=== PATIENT | male | born 1945 | race Caucasian/White ===

== ENCOUNTER → 2016-09-03 | Outpatient (CLI) | payer MEDICARE, OTHER | END | disposition home or self-care (01) | LOC: PCVCIMAG 14:36 | PROVIDERS: ATTEND Internal Medicine Cardiovascular Disease | DX: I70.213 Atherosclerosis of native arteries of extremities with intermittent claudication, bilateral legs (principal); I25.10 Atherosclerotic heart disease of native coronary artery without angina pectoris | CPT/HCPCS: 93925 ==

== ENCOUNTER → 2016-09-09 | Outpatient (CLI) | payer MEDICARE, OTHER | END | disposition home or self-care (01) | LOC: PCVCCLINIC 15:50 | PROVIDERS: ATTEND Nuclear Medicine Nuclear Cardiology | DX: I73.9 Peripheral vascular disease, unspecified (principal); I35.0 Nonrheumatic aortic (valve) stenosis; I65.29 Occlusion and stenosis of unspecified carotid artery; E78.00 Pure hypercholesterolemia, unspecified; G47.30 Sleep apnea, unspecified | CPT/HCPCS: G0463 ==

== ENCOUNTER → 2016-09-13 | Outpatient (CLI) | payer MEDICARE, OTHER ==
[~2016-09-13] MED LIST: CEFAZOLIN 2GM PREMIX 0 ML IV ONE; CLOPIDOGREL BISULFATE 75 MG TABLET ONE; DIAZEPAM 10 MG TABLET ONE; FENTANYL PF 100 MCG/2 ML VIAL. ONE; HEPARIN 5,000 UNIT/ML VIAL for PCVC ONE; IODIXANOL 270 MG/ML 100 ML VIAL. ONE; IV NORMAL SALINE 1000ML BAG 1,000 ML ONE; IV NORMAL SALINE 500ML BAG 0 ML ONE; LIDOCAINE 1% Multi-Dose 20 ML VIAL. ONE; MIDAZOLAM HCL 2 MG/2 ML VIAL. ONE; hydrALAZINE 20 MG/ML VIAL. ONE
== END | disposition home or self-care (01) ==
LOC: PCVCINTER 09:28
PROVIDERS: ATTEND Nuclear Medicine Nuclear Cardiology
DX: I70.213 Atherosclerosis of native arteries of extremities with intermittent claudication, bilateral legs (principal); I70.1 Atherosclerosis of renal artery; I70.0 Atherosclerosis of aorta; I15.0 Renovascular hypertension; I77.1 Stricture of artery; I35.0 Nonrheumatic aortic (valve) stenosis; I65.29 Occlusion and stenosis of unspecified carotid artery; E78.00 Pure hypercholesterolemia, unspecified; G47.30 Sleep apnea, unspecified
CPT/HCPCS: 36246; 36252; 75716; 76937; C1751; C1760; C1769; C1894; J0360; J2250; J3010; J7030; J0690; J1644; J7040

== ENCOUNTER → 2016-10-09 | Outpatient (CLI) | payer MEDICARE, OTHER ==
[~2016-10-09] MED LIST changes: -CEFAZOLIN 2GM PREMIX 0 ML IV ONE; -CLOPIDOGREL BISULFATE 75 MG TABLET ONE; -DIAZEPAM 10 MG TABLET ONE; -FENTANYL PF 100 MCG/2 ML VIAL. ONE; -HEPARIN 5,000 UNIT/ML VIAL for PCVC ONE; -IODIXANOL 270 MG/ML 100 ML VIAL. ONE; -IV NORMAL SALINE 1000ML BAG 1,000 ML ONE; -IV NORMAL SALINE 500ML BAG 0 ML ONE; -LIDOCAINE 1% Multi-Dose 20 ML VIAL. ONE; -MIDAZOLAM HCL 2 MG/2 ML VIAL. ONE; +REGADENOSON 0.4 MG/5 ML DISP.SYRIN. IV ONE; -hydrALAZINE 20 MG/ML VIAL. ONE
== END | disposition home or self-care (01) ==
LOC: PCVCIMAG 07:50
PROVIDERS: ATTEND Internal Medicine Cardiovascular Disease
DX: I25.10 Atherosclerotic heart disease of native coronary artery without angina pectoris (principal); I73.9 Peripheral vascular disease, unspecified; I63.9 Cerebral infarction, unspecified; Z82.49 Family history of ischemic heart disease and other diseases of the circulatory system
CPT/HCPCS: 78452; 93017; A9500; G0463; J2785

== ENCOUNTER → 2017-04-11 | Outpatient (CLI) | payer MEDICARE, OTHER ==
--- NOTE | 2017-04-11 15:46 | PCVCIMAG ---
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 2D Dimensions LVEF(%): 52.17 (>50%) IVSd: 9.03 (7-11mm)LVOT Diam: 20.60 (18-24mm) LVDd: 48.44 mm PWd: 9.58 (7-11mm) LVDs: 35.47 (25-40mm) Left Atrium: 31.99 (27-40mm) Aortic Root: 25.60 mm LV Single Plane 4CH: 49.09 % LV Single Plane 2CH: 66.02 %Baeza's LVEF: 57.56 % Biplane EF: 61.0 % Volumes Left Atrial Volume (Systole) Single Plane 4CH: 47.16 mLSingle Plane 2CH: 59.83 mL Biplane LA Volume: 56.00 mLLA ESV Index: 25.00 mL/m2 Aortic Valve AoV Peak Bassam.: 2.44 m/s AO Peak Gr.: 24.85 mmHgLVOT Max P.70 mmHg AO Mean Gr.: 13.77 mmHgLVOT Mean P.81 mmHg AO V2 Mean: 1.80 m/sLVOT Max V: 0.93 m/s AO V2 VTI: 50.45 cmLVOT Mean V: 0.64 m/s LVOT V1 VTI: 18.80 cm SV (LVOT): 62.67 mL Mitral Valve E/A Ratio: 0.7 MV Decel. Time: 193.54 ms MV E Max Bassam.: 0.52 m/s MV A Bassam.: 0.73 m/s IVRT: 65.74 ms TDI E/Lateral E': 4.73E/Medial E': 13.00 Medial E' Bassam.: 0.04 m/s Lateral E' Bassam.: 0.11 m/s Pulmonary Valve PV Peak Bassam.: 1.09 m/sPV Peak Gr.: 4.72 mmHg Pulmonary Vein P Vein S: 0.62 m/sP Vein A: 0.37 m/s P Vein D: 0.38 m/sP Vein A Dur.: 72.7 msec P Vein S/D Ratio: 1.63 Tricuspid Valve TR Peak Bassam.: 2.46 m/s TR Peak Gr.: 24.28 mmHg TV Vmax: 0.63 m/sPA Pressure: 31.00 mmHg Left Ventricle The left ventricle is normal size. There is normal LV segmental wall motion except for the base-mid inferior wall from an old AL. There is normal left ventricular wall thickness. Left ventricular systolic function is normal. The left ventricular ejection fraction is within the normal range. LVEF is 60-65%. Grade I - abnormal relaxation pattern. Right Ventricle The right ventricle is normal size. The right ventricular systolic function is normal. Atria The left atrium size is normal. Right atrium is mildly dilated. Aortic Valve Aortic valve is trileaflet. Moderate aortic valve sclerosis. Trace aortic regurgitation. Mild aortic stenosis. Highest mean aortic valve gradient is 14mmHg. Peak aortic valve gradient is 24 mmHg. Mitral Valve The mitral valve is normal in structure. Trace to mild mitral regurgitation. No evidence of mitral valve stenosis. Tricuspid Valve The tricuspid valve is normal in structure. Mild tricuspid regurgitation with a PA pressure of 31mmHg. Pulmonic Valve The pulmonary valve is normal in structure. There is no pulmonic valvular regurgitation. Great Vessels The aortic root is normal in size. The ascending aorta is normal in size. IVC is normal in size and collapses with >50% inspiration Pericardium There is no pericardial effusion. There is no pleural effusion. <Conclusion> The left ventricle is normal size. Left ventricular systolic function is normal. The right ventricle is normal size. The left atrium size is normal. Mild aortic stenosis. Trace to mild mitral regurgitation. Mild tricuspid regurgitation with a PA pressure of 31mmHg.
== END | disposition home or self-care (01) ==
LOC: PCVCIMAG 14:48
PROVIDERS: ATTEND Internal Medicine Cardiovascular Disease
DX: I08.3 Combined rheumatic disorders of mitral, aortic and tricuspid valves (principal); I25.10 Atherosclerotic heart disease of native coronary artery without angina pectoris; I10 Essential (primary) hypertension; I73.9 Peripheral vascular disease, unspecified; E78.00 Pure hypercholesterolemia, unspecified; I44.0 Atrioventricular block, first degree; I25.2 Old myocardial infarction; K21.9 Gastro-esophageal reflux disease without esophagitis; G47.33 Obstructive sleep apnea (adult) (pediatric); I65.23 Occlusion and stenosis of bilateral carotid arteries; Z95.1 Presence of aortocoronary bypass graft; Z95.5 Presence of coronary angioplasty implant and graft; Z87.891 Personal history of nicotine dependence; Z79.899 Other long term (current) drug therapy
CPT/HCPCS: 36415; 93005; 93306; G0463

== ENCOUNTER → 2017-10-10 | Outpatient (CLI) | payer MEDICARE, OTHER | END | disposition home or self-care (01) | LOC: PCVCCLINIC 10:52 | DX: I25.10 Atherosclerotic heart disease of native coronary artery without angina pectoris (principal); I10 Essential (primary) hypertension; E78.00 Pure hypercholesterolemia, unspecified; I73.9 Peripheral vascular disease, unspecified; Z79.82 Long term (current) use of aspirin; Z79.899 Other long term (current) drug therapy; Z87.891 Personal history of nicotine dependence | CPT/HCPCS: 93005; G0463 ==

== ENCOUNTER → 2018-02-18 | Outpatient (CLI) | payer MEDICARE, OTHER | END | disposition home or self-care (01) | LOC: PCVCCLINIC 15:41 | DX: I25.10 Atherosclerotic heart disease of native coronary artery without angina pectoris (principal); I10 Essential (primary) hypertension; E78.00 Pure hypercholesterolemia, unspecified; I73.9 Peripheral vascular disease, unspecified; Z79.82 Long term (current) use of aspirin | CPT/HCPCS: 93005; G0463 ==

== ENCOUNTER → 2018-02-24 | Outpatient (CLI) | payer MEDICARE, OTHER | END | disposition home or self-care (01) | LOC: PCVCCLINIC 15:10 | PROVIDERS: ATTEND Internal Medicine Cardiovascular Disease | DX: I10 Essential (primary) hypertension (principal); I25.10 Atherosclerotic heart disease of native coronary artery without angina pectoris; E78.00 Pure hypercholesterolemia, unspecified; I73.9 Peripheral vascular disease, unspecified | CPT/HCPCS: 36415 ==

== ENCOUNTER → 2018-10-02 | Outpatient (CLI) | payer MEDICARE, OTHER ==
--- NOTE | 2018-10-02 11:05 | PCVCIMAG ---
APPROVED REPORT Imaging Protocol: Rest Tc-99m/Stress Tc-99m 1 day Study performed: 10/02/2018 08:54:19 Indication: CAD Patient Location: Out-Patient Stress Nurse: Jackie Chan RN, Chhaya Duran RN [place] Tech:Jasen Shen NMCALVINB Ht: 6 ft 3 in Wt: 205 lbs BSA: 2.22 m2 HR: 48 bpm BP: 159/75 mmHg BMI: 25.62 Rhythm: Sinus Bradycardia, First Degree AV Block, ST and T Abnormality Medical History Medical History: Age, Hyperlipidemia, HTN, PVD, Former Smoker Medications: ASA, Atorvastatin, HCTZ, Metoprolol Allergies: No known drug allergies Previous Cardiac Procedures: CABG, PCI Pretest Chest Pain Characteristics: No chest pain Exercise History: Physically active Physical Disabilities: Back Meds Held (24 hrs): Metoprolol Resting Data Rest SPECT myocardial perfusion imaging was performed in supine position 45 minutes following the intravenous injection of 10.7 mCi of Tc-99m Sestamibi. Time of rest injection: 839 Date: 10/02/2018 Administration Route: IV Administration Site: Right AC Pharmacologic Stress Pharmacologic stress test was performed by injecting Regadenoson 0.4 mg IV push over 10-15 seconds immediately followed by the intravenous injection of 33.3 mCi of Tc-99m Sestamibi. Time of stress injection: 944 Date: 10/02/2018 Administration Route: IV Administration Site: Right AC Gated Stress SPECT was performed 45 minutes after stress injection. The images were gated to evaluate regional wall motion and calculate left ventricular ejection fraction. Stress Test Details Stress Test: Pharmacologic stress testing performed using 0.4 mg of regadenoson per 5 mL given IV over 10 seconds. Reason for pharmacologic stress test: Bulging Disc. HRMax Heart Rate (APMHR): 145 bpm Resting HR: 48 bpmTarget HR (85% APMHR): 123 bpm Max HR Achieved: 80 bpm % of APMHR: 55 Recovery HR: 62 bpm BP Resting BP: 159/75 mmHg Max BP: 132/59 mmHg Recovery BP: 156/106 mmHg ECG Resting ECG: Sinus Bradycardia, nonspecific ST-T abnormalities Stress ECG: Sinus Rhythm, nonspecific ST-T abnormalities ST Change: Non-ischemic Arrhythmia: PAC's, PVC's Recovery ECG: Sinus Rhythm, nonspecific ST-T abnormalities Clinical Reason for Termination: Completed protocol Stress Symptoms: None Exercise duration: min 55 sec Symptoms resolved during recovery. Study Quality Study: Good Artifact: Moderate Diaphragmatic artifact Study Data Post stress, the left ventricular ejection was 57%.. SSS: 8 SRS: 10 SDS: 1 TID = 1.03. Perfusion There is a medium area of moderately reduced uptake in the basal and mid segment of the inferior wall which is seen on the stress images as well as the resting images. This area thickens and moves normally and is most consistent with attenuation artifact. Wall Motion Normal left ventricular wall motion. Nuclear Conclusion ECG Findings: negative for ischemia Clinical Findings: non-diagnostic Nuclear Findings: negative for ischemia Exercise Capacity: not assessed Left Ventricular Function: normal This study is of low probability for inducible ischemia or prior infarct. Normal global and segmental LV systolic function. Artifact: Moderate Diaphragmatic artifact
== END | disposition home or self-care (01) ==
LOC: PCVCIMAG 08:21
PROVIDERS: ATTEND Internal Medicine Cardiovascular Disease
DX: I25.10 Atherosclerotic heart disease of native coronary artery without angina pectoris (principal); I10 Essential (primary) hypertension; E78.00 Pure hypercholesterolemia, unspecified; R60.9 Edema, unspecified; K21.9 Gastro-esophageal reflux disease without esophagitis; E78.5 Hyperlipidemia, unspecified; Z79.82 Long term (current) use of aspirin; Z87.891 Personal history of nicotine dependence
CPT/HCPCS: 78452; 93017; A9500; G0463; J2785

== ENCOUNTER → 2019-04-09 | Outpatient (CLI) | payer MEDICARE, OTHER ==
--- NOTE | 2019-04-09 15:42 | PCVCIMAG ---
APPROVED REPORT Study performed: 04/09/2019 14:42:59 EXAM: Comprehensive 2D, Doppler, and color-flow Echocardiogram Patient Location: Echo lab Room #: 2Status: routine BSA: 2.22 HR: 63 bpmBP: 148/66 mmHg Rhythm: NSR Other Information Study Quality: Good Risk Factors: Cardiac Risk Factors: HTN, Hyperlipidemia Indications Aortic Valve Disease CAD Palpitations Hx CABG, occluded graft-stented, Old CT basal-mid inferior wall 2D Dimensions IVSd: 11.92 (7-11mm)LVOT Diam: 20.60 (18-24mm) LVDd: 48.02 mm PWd: 8.52 (7-11mm)Ascending Ao: 28.63 (22-36mm) LVDs: 26.26 (25-40mm) Left Atrium: 40.23 (27-40mm) Aortic Root: 27.19 mm LV Single Plane 4CH: 67.08 % LV Single Plane 2CH: 57.92 % Biplane EF: 62.0 % Volumes Left Atrial Volume (Systole) Single Plane 4CH: 54.36 mLSingle Plane 2CH: 54.49 mL Biplane LA Volume: 58.00 mLLA ESV Index: 26.00 mL/m2 Aortic Valve AoV Peak Bassam.: 2.80 m/s AO Peak Gr.: 32.13 mmHgLVOT Max P.46 mmHg AO Mean Gr.: 19.31 mmHgLVOT Mean P.25 mmHg AO V2 Mean: 2.11 m/sLVOT Max V: 1.02 m/s AO V2 VTI: 62.82 cmLVOT Mean V: 0.68 m/s LUIS DANIEL (VTI): 1.01 [id number] VTI: 19.14 cm LUIS DANIEL Vmax: 1.21 cm2 SV (LVOT): 63.75 mL Mitral Valve E/A Ratio: 0.7 MV Decel. Time: 252.80 ms MV E Max Bassam.: 0.60 m/s MV A Bassam.: 0.82 m/s IVRT: 121.11 ms TDI Medial E' Bassam.: 0.00 m/s Pulmonary Valve PV Peak Bassam.: 1.09 m/sPV Peak Gr.: 4.72 mmHg Pulmonary Vein P Vein S: 0.47 m/sP Vein A: 0.25 m/s P Vein D: 0.56 m/sP Vein A Dur.: 76.1 msec P Vein S/D Ratio: 0.84 Tricuspid Valve TR Peak Bassam.: 2.35 m/s TR Peak Gr.: 22.03 mmHg TV Vmax: 0.63 m/sPA Pressure: 29.00 mmHg Left Ventricle The left ventricle is normal size. Regional wall motion is normal except for a known old CT of the basal-mid inferior wall. Mild basal septal hypertrophy is present. Left ventricular systolic function is normal. The left ventricular ejection fraction is within the normal range. LVEF is 60-65%. Grade I - abnormal relaxation pattern. Right Ventricle The right ventricle is normal size. The right ventricular systolic function is normal. Atria The left atrium size is normal. The right atrium size is normal. Aortic Valve Aortic valve is trileaflet. Aortic valve leaflets are moderately sclerotic with decreased leaflet excursion. No aortic regurgitation is present. Mild to moderate aortic stenosis. Highest mean aortic valve gradient is 19_mmHg. Peak aortic valve gradient is 31_mmHg. Calculated LUIS DANIEL by the continuity equation is 1.2-1.3 cm2. Mitral Valve The mitral valve is normal in structure. There is no mitral valve regurgitation noted. No evidence of mitral valve stenosis. Tricuspid Valve The tricuspid valve is normal in structure. Trace to mild tricuspid regurgitation with a PA pressure of 29 mmHg. No apparent pulmonary hypertension. Pulmonic Valve The pulmonary valve is normal in structure. There is no pulmonic valvular regurgitation. Great Vessels The aortic root is normal in size. The ascending aorta is normal in size. Aortic arch is normal in caliber. IVC is normal in size and collapses >50% with inspiration. Pericardium There is no pericardial effusion. There is no pleural effusion. <Conclusion> The left ventricle is normal size. Left ventricular systolic function is normal. Grade I - abnormal relaxation pattern. The right ventricle is normal size. The left atrium size is normal. Mild to moderate aortic stenosis. There is no mitral valve regurgitation noted. Trace to mild tricuspid regurgitation with a PA pressure of 29 mmHg.
== END | disposition home or self-care (01) ==
LOC: PCVCIMAG 14:22
PROVIDERS: ATTEND Internal Medicine Cardiovascular Disease
DX: I08.2 Rheumatic disorders of both aortic and tricuspid valves (principal); I25.10 Atherosclerotic heart disease of native coronary artery without angina pectoris; R00.2 Palpitations; I25.2 Old myocardial infarction; E78.00 Pure hypercholesterolemia, unspecified; I10 Essential (primary) hypertension; K21.9 Gastro-esophageal reflux disease without esophagitis; Z95.1 Presence of aortocoronary bypass graft; Z79.899 Other long term (current) drug therapy; Z87.891 Personal history of nicotine dependence
CPT/HCPCS: 93005; 93306; G0463